=== PATIENT | male | born 1955 | race African-American/Black ===

== ENCOUNTER 2016-11-27 03:42 | Emergency (ER) | payer OTHER ==
[~2016-11-27] VITALS: Ht 175.3 cm; Wt 91.0 kg
[~2016-11-27 03:42] MED LIST: ACYC200C; ALLO100T PO; LISI-604 PO; OMEP20CA10; SIMV10TA6 PO; TERA5CAP4 PO
[2016-11-27] MEDS ORDERED: IBUPROFEN 600MG TABLET PO STA (04:13)
[2016-11-27 04:33] LABS: BASOPHILS % 0.5 % (0.0-2.0); EOSINOPHILS % 1.7 % (0.0-5.0); HEMATOCRIT. 42.1 % (42.0-52.0); HEMOGLOBIN. 13.8 g/dL (14.0-18.0); MEAN CORPUSCULAR HEMOGLOBIN 26.2 pg (28.0-32.0); MEAN CORPUSCULAR VOLUME 79.7 fL (80.0-94.0); MEAN PLATELET VOLUME 8.9 fl (7.4-10.4); MONOCYTES % 6.9 % (2.0-8.0); NEUTROPHILS % 46.9 % (40.0-76.0); PLATELET 241 x1000/uL (130-400); RED BLOOD CELL COUNT 5.29 mill/uL (4.7-6.1); RED CELL DISTRIBUTION WIDTH 13.5 % (11.6-14.6)
[2016-11-27 04:43] LABS: CHLORIDE 107 mEq/L (98-107)
[2016-11-27 04:59] LABS: CARBON DIOXIDE 24 mEq/L (21-32)
[2016-11-27 05:46] VITALS: BP 157/98
== END 2016-11-27 05:47 | disposition home or self-care (01) ==
LOC: ER 03:42
DX: R07.9 Chest pain, unspecified (principal); I10 Essential (primary) hypertension; E78.00 Pure hypercholesterolemia, unspecified
CPT/HCPCS: 36415; 71010; 80053; 85025; 93005; 99285

== ENCOUNTER 2017-08-18 10:19 | Emergency (ER) | payer OTHER ==
[~2017-08-18] VITALS: Ht 177.8 cm; Wt 93.0 kg
[2017-08-18 12:59] VITALS: BP 148/90
== END 2017-08-18 13:01 | disposition home or self-care (01) ==
LOC: ER 10:58
DX: J11.1 Influenza due to unidentified influenza virus with other respiratory manifestations (principal); I10 Essential (primary) hypertension; Z86.73 Personal history of transient ischemic attack (TIA), and cerebral infarction without residual deficits; I25.2 Old myocardial infarction
CPT/HCPCS: 93005; 99283

== ENCOUNTER 2017-12-13 12:14 | Emergency (ER) | payer OTHER ==
[~2017-12-13] VITALS: Ht 177.8 cm; Wt 93.0 kg
[2017-12-13] MEDS ORDERED: HYDROCODONE/ACETAMINOPHEN 5/325MG TABLET PO ONE ×2 (13:30)
[2017-12-13 13:51] LABS: HEMATOCRIT. 39.7 % (42.0-52.0); HEMOGLOBIN. 12.9 g/dL (14.0-18.0); MEAN CORPUSCULAR VOLUME 79.7 fL (80.0-94.0); PLATELET 296 x1000/uL (130-400); RED BLOOD CELL COUNT 4.98 mill/uL (4.7-6.1); RED CELL DISTRIBUTION WIDTH 14.2 % (11.6-14.6)
[2017-12-13 13:58] LABS: CHLORIDE 110 mEq/L (98-107)
[2017-12-13 14:14] LABS: PLATELET ESTIMATE NORMAL
[2017-12-13 16:52] VITALS: BP 135/81
== END 2017-12-13 16:53 | disposition home or self-care (01) ==
LOC: ER 15:42
DX: S60.221A Contusion of right hand, initial encounter (principal); S60.211A Contusion of right wrist, initial encounter; I10 Essential (primary) hypertension; W01.0XXA Fall on same level from slipping, tripping and stumbling without subsequent striking against object, initial encounter; Y93.89 Activity, other specified; Y92.89 Other specified places as the place of occurrence of the external cause; F17.210 Nicotine dependence, cigarettes, uncomplicated; I25.2 Old myocardial infarction; Z86.73 Personal history of transient ischemic attack (TIA), and cerebral infarction without residual deficits; M10.9 Gout, unspecified
CPT/HCPCS: 29240; 36415; 73110; 73130; 80048; 84550; 85007; 85027; 93005; 99285; Z7610

== ENCOUNTER 2018-01-29 05:20 | Emergency (ER) | payer OTHER ==
[~2018-01-29] VITALS: Ht 175.3 cm; Wt 98.0 kg
[2018-01-29] MEDS ORDERED: HYDROCODONE/ACETAMINOPHEN 5/325MG TABLET PO ONE (06:15)
[2018-01-29 09:19] VITALS: BP 132/84
== END 2018-01-29 09:53 | disposition home or self-care (01) ==
LOC: ER 06:12
DX: S09.8XXA Other specified injuries of head, initial encounter (principal); G51.0 Bell's palsy; I10 Essential (primary) hypertension; I25.2 Old myocardial infarction; N40.0 Benign prostatic hyperplasia without lower urinary tract symptoms; M19.90 Unspecified osteoarthritis, unspecified site; Z87.891 Personal history of nicotine dependence; W01.0XXA Fall on same level from slipping, tripping and stumbling without subsequent striking against object, initial encounter; Y93.89 Activity, other specified; Y92.018 Other place in single-family (private) house as the place of occurrence of the external cause
CPT/HCPCS: 70450; 99284

== ENCOUNTER 2018-09-21 08:27 | Emergency (ER) | payer MEDICAID, OTHER ==
[~2018-09-21] VITALS: Ht 177.8 cm; Wt 96.0 kg
[2018-09-21 08:33] VITALS: BP 169/102
== END 2018-09-21 12:00 | disposition left against medical advice (07) ==
LOC: ER 08:27
DX: Z53.21 Procedure and treatment not carried out due to patient leaving prior to being seen by health care provider (principal)

== ENCOUNTER 2019-03-01 07:42 | Emergency (ER) | payer MEDICAID ==
[~2019-03-01 07:42] MED LIST changes: -OMEP20CA10; +OMEP20CA5
== END 2019-03-01 08:40 | disposition left against medical advice (07) ==
LOC: ER 07:42
DX: Z53.21 Procedure and treatment not carried out due to patient leaving prior to being seen by health care provider (principal)